=== PATIENT | female | born 1985 | race Caucasian/White ===

== ENCOUNTER 2017-07-11 16:58 | Emergency (ER) | payer MEDICAID | END 2017-07-11 18:02 | disposition home or self-care (01) | LOC: LB.ED 16:58 | DX: S61.235A Puncture wound without foreign body of left ring finger without damage to nail, initial encounter (principal); W45.8XXA Other foreign body or object entering through skin, initial encounter | CPT/HCPCS: 36415; 86706; 86803; 87389; 99282; 99283 ==

== ENCOUNTER 2017-09-16 22:50 | Emergency (ER) | payer MEDICAID, OTHER ==
[2017-09-16] MEDS ORDERED: Amoxicillin 500 MG Cap ONE (23:15)
--- NOTE | 2017-09-17 03:07 | ER ---
HPI: A 31-year-old lady here with her with complaints of sore throat for the last two days and some generalized achiness. The patient states that she has two children at home with strep throat, who were diagnosed last week, and she is getting similar symptoms. She states that she has not taken any [id number]-[id number] medications, but she thinks she does have some Advil at home. She denies any problems with high fever, shortness of breath, coughing, or GI symptoms. OBJECTIVE: GENERAL APPEARANCE: The patient is awake and alert. No obvious distress. VITAL SIGNS: Reviewed, they are normal. HEENT: Ears, TMs are dull, otherwise normal. Nares are patent. Oral mucous membranes moist. Pharynx is moderately erythematous. NECK: Supple with tender cervical lymphadenopathy noted. LUNGS: Clear. SKIN: Warm and dry. DIAGNOSIS: Pharyngitis with exposure to strep throat. TREATMENT PLAN: Amoxicillin for 10 days, [id number] medications should be used as needed. I advised patient to use it regularly for the next day or so, and then as needed as her symptoms should be improving. Strep precautions were discussed. Other family members should be monitored for similar symptoms and follow up is shamar CRS/MODL /[id number]
== END 2017-09-16 23:20 | disposition home or self-care (01) ==
LOC: LB.ED 22:50
DX: J02.0 Streptococcal pharyngitis (principal)
CPT/HCPCS: 99283; A9270

== ENCOUNTER 2018-04-12 22:02 | Emergency (ER) | payer SELFPAY ==
--- NOTE | 2018-04-12 22:35 | EDM.PDOC ---
ED HPI GENERAL MEDICAL PROBLEM - General Chief Complaint: General Stated Complaint: cough Time Seen by Provider: 04/12/18 22:15 Source of Information: Reports: Patient, RN History Limitations: Reports: No Limitations - History of Present Illness INITIAL COMMENTS - FREE TEXT/NARRATIVE: 32 yr female presents with cough, congestion, sore throat and achy. This has been going on for about 1 week. She is feeling some nauseated with this. States she did try a nebulizer at home and did get a worse cough with that. She does smoke and states a hx of bronchitis, but never had pneumonia that she is aware of. States her children are on antibiotic and are feeling better. She hasn't had any antibiotic for quite some time, but has had Bactrim in the past and no allergies to antibiotic in the past. Treatments ARC WELDER: Reports: Other Medication(s) Other Treatments ARC WELDER: Gregoria-seltzer, cough syrup, motrin, and tylenol right earache Pain Score (Numeric/FACES): 7 - Related Data Allergies Allergy/AdvReac Type Severity Reaction Status Date / Time morphine Allergy Anaphylactic Verified 04/12/18 22:21 Shock Home Meds: Home Meds NK [No Known Home Meds] 07/11/17 [History] Past Medical History - Past Health History Medical/Surgical History: Denies Medical/Surgical History DISTRICT CAPTAIN History: Reports: Other DISTRICT CAPTAIN History: Has 5 children - Infectious Disease History Infectious Disease History: Reports: MRSA, Other (See Below) Other Infectious Disease History: Stated, "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 Denies: Vomiting Musculoskeletal: Reports: Other (achy all over) Skin: Reports: Other (sore to left chest, states possible bug bite) Neurological: Reports: Headache Psychiatric: Reports: No Symptoms Hematologic/Lymphatic: Reports: No Symptoms Immunologic: Reports: No Symptoms ED EXAM, GENERAL - Physical Exam Exam: See Below Exam Limited By: No Limitations General Appearance: Alert, No Apparent Distress Ears: Normal Canal, Hearing Grossly Normal Ear Exam: Right Ear: TM Dull, TM Red, TM Bulging Nose: Normal Inspection Throat/Mouth: Normal Voice, No Airway Compromise Head: Atraumatic, Normocephalic Neck: Normal Inspection, Supple, Non-Tender Respiratory/Chest: Lungs Clear, Normal Breath Sounds Cardiovascular: Regular Rate, Rhythm GI/Abdominal: Soft, Non-Tender Extremities: Normal Range of Motion Neurological: Alert, Oriented, Normal Cognition Psychiatric: Normal Affect, Normal Mood Skin Exam: Warm, Normal Color Course - Vital Signs Last Recorded V/S: Last Vital Signs Temp 98.1 F 04/12/18 22:12 Pulse 77 04/12/18 22:12 Resp 18 04/12/18 22:12 BP 120/70 04/12/18 22:12 Pulse Ox 100 04/12/18 22:12 - Orders/Labs/Meds Orders: Active Orders 24 hr Category Date Time Status Chest 2V [CR] Stat Exams 04/12/18 22:22 Taken Labs: Laboratory Tests 04/12/18 Range/Units 22:30 WBC 13.3 H D (4.0-11.0) K/uL RBC 4.47 (3.80-5.80) M/uL Hgb 12.0 (11.5-16.5) g/dL Hct 37.0 (37.0-47.0) % MCV 83 (76-96) fL MCH 26.8 L (27.0-32.0) pg MCHC 32.4 (31.0-35.0) g/dL RDW 15.5 (11.0-16.0) % Plt Count 303 (150-500) K/uL MPV 10.3 H (6.0-10.0) fL Neut % (Auto) 60.2 (45.0-70.0) % Lymph % (Auto) 29.8 (20.0-40.0) % [place] % (Auto) 7.4 (3.0-10.0) % Eos % (Auto) 2.4 (1.0-5.0) % Baso % (Auto) 0.2 (0.0-0.5) % Neut # (Auto) 8.03 H (2.00-7.50) K/uL Lymph # (Auto) 3.96 (1.50-4.00) K/uL [place] # (Auto) 0.98 H (0.20-0.80) K/uL Eos # (Auto) 0.32 (0.04-0.40) K/uL Baso # (Auto) 0.02 (0.02-0.10) K/uL - Re-Assessments/Exams Free Text/Narrative Re-Assessment/Exam: 04/12/18 22:38 Will check CBC, Chest X-ray and influenza screen. Departure - Departure Time of Disposition: 23:20 Disposition: Home, Self-Care 01 Condition: Good Clinical Impression: Acute bronchitis - Discharge Information *PRESCRIPTION DRUG MONITORING PROGRAM REVIEWED*: Not Applicable *COPY OF PRESCRIPTION DRUG MONITORING REPORT IN PATIENT ANKUR: Not Applicable Forms: ED Department Discharge - My Orders Last 24 Hours: My Active Orders 04/12/18 22:22 Chest 2V [CR] Stat - Assessment/Plan Last 24 Hours: My Active Orders 04/12/18 22:22 Chest 2V [CR] Stat Plan: Acute bronchitis, probable start of pneumonia. Will treat with Azithromycin 2 tablet tonight then 1 tablet daily Recommend rest, fluids to thin secretion, Tylenol or Ibuprofen as needed. F/U in clinic in 1 week or sooner if symptoms worsen.
[2018-04-12] MEDS ORDERED: Azithromycin 250 MG Tab ONE (23:20)
--- NOTE | 2018-04-13 08:30 | CR ---
DATE OF SERVICE: 04/12/18 CLINICAL DATA: coughing PA AND LATERAL CHEST: The heart size is normal. The lungs are clear. No pneumothorax. No pleural effusions. No evidence of acute intrathoracic disease. [id number] MTDD
== END 2018-04-12 23:25 | disposition home or self-care (01) ==
LOC: LB.ED 22:02
DX: J20.9 Acute bronchitis, unspecified (principal); F17.200 Nicotine dependence, unspecified, uncomplicated; Z88.5 Allergy status to narcotic agent
CPT/HCPCS: 36415; 71046; 85025; 87804; 99283; A9270-GY

== ENCOUNTER 2018-09-01 10:36 | Day surgery (SDC) | payer MEDICAID ==
[~2018-09-01 10:36] MED LIST: Lactated Ringers 1,000 ML IV SCH
[2018-09-01] MEDS ORDERED: Midazolam 1 MG/ML 2 ML SDV ONE (13:45)
[2018-09-01] MEDS ORDERED: ceFAZolin 1 GM Vial ONE (13:45)
[2018-09-01] MEDS ORDERED: fentaNYL 100 MCG/2 ML SDV ONE (13:45)
[2018-09-01] MEDS ORDERED: Ketorolac 30 MG/ML SDV ONE (13:45)
[2018-09-01] MEDS ORDERED: Propofol 200 MG/20 ML SDV ONE (13:45)
--- NOTE | 2018-09-01 16:34 | OR ---
DATE OF OPERATION: 09/01/2018 REGISTRATION REP: Dia Veras RN. PREOPERATIVE DIAGNOSIS: Lipoma of back. POSTOPERATIVE DIAGNOSIS: Lipoma of back. PROCEDURE: Excision of lipoma of back. ANESTHESIA: Local with MAC. ESTIMATED BLOOD LOSS: Minimal. COMPLICATIONS: None. INDICATION FOR THE PROCEDURE: The patient is a 32-year-old female who has had a mass in her left upper back noticed for the past couple of months and is starting to bother her. She would like it removed. DESCRIPTION OF THE PROCEDURE: Informed consent was obtained with the patient. The patient was taken to the operating room and placed on table in prone position. Monitored anesthesia care was administered. She did receive preoperative antibiotics. Her back was prepped and draped in sterile fashion. The palpable mass was identified. The skin overlying this was infiltrated with local anesthetic. An opening incision of 5 cm was carried out with a #15 blade, dissecting down to the subcutaneous tissues with electrocautery. I did encounter the muscular fascia. This mass was underneath that. Fascia was opened sharply. Lipomatous mass was then bluntly dissected free as well as with the use of electrocautery. The mass was passed off the field. This was multilobulated, but approximate size was 4 cm x 3 cm x 1.5 cm. Some additional lipomatous pieces were also removed with the help of electrocautery. The wound was then irrigated and dried and hemostasis obtained with electrocautery. The fascial layer was then closed with 2-0 Vicryl suture. Deep dermal layer was closed with 3-0 Vicryl suture. Skin was closed with 4-0 Monocryl in a running subcuticular fashion. Mastisol, Steri-Strips, and sterile dressings were applied. At the end the case, all sponge count, needle count, and instrument counts correct. The patient tolerated the procedure well and was brought to recovery room in good condition. PARISA/COLUMBA /[id number]
== END 2018-09-01 16:49 | disposition home or self-care (01) ==
LOC: LB.SDS 10:36
PROVIDERS: ATTEND Surgery
DX: D17.1 Benign lipomatous neoplasm of skin and subcutaneous tissue of trunk (principal); F41.0 Panic disorder [episodic paroxysmal anxiety]; F41.1 Generalized anxiety disorder; F17.210 Nicotine dependence, cigarettes, uncomplicated; Z88.5 Allergy status to narcotic agent; Z98.890 Other specified postprocedural states
CPT/HCPCS: 13101; 21932; 88304; J0690; J1885; J2250; J2704; J3010; J7120

== ENCOUNTER 2019-04-01 11:58 | Emergency (ER) | payer MEDICAID ==
[2019-04-01] MEDS ORDERED: Ketorolac 10 MG Tab ONE (12:10)
[2019-04-01] MEDS: Ketorolac 60 MG/2 ML SDV IM ONE (12:32)
== END 2019-04-01 12:36 | disposition home or self-care (01) ==
LOC: LB.ED 11:58
DX: R07.0 Pain in throat (principal); Z90.89 Acquired absence of other organs
CPT/HCPCS: 96372; 99283; A9270; J1885

== ENCOUNTER 2019-05-31 00:24 | Emergency (ER) | payer MEDICAID ==
[2019-05-31] MEDS ORDERED: predniSONE 10 MG Tab ONE (00:40)
[2019-05-31] MEDS ORDERED: Doxycycline 100 MG Cap ONE (00:40)
[2019-05-31] MEDS ORDERED: Formoterol/Mometasone 100-5 MCG 8.8 GM Inhaler ONE (00:40)
--- NOTE | 2019-05-31 01:19 | ER ---
HISTORY OF PRESENT ILLNESS: This is a 33-year-old lady here with complaints of persistent harsh coughing that develops into chest discomfort and chest tightness. She states the cough is mostly dry. She also is developing sinus pressure and pain below both eyes that she is convinced is a sinus infection developing. These symptoms have been ongoing for 2 weeks. Early in the stage of her illness, she had flu-like symptoms, but these have resolved. The patient denies any problems with nausea, vomiting or diarrhea. OBJECTIVE: GENERAL APPEARANCE: The patient is awake and alert, in no obvious respiratory distress. She has an occasional harsh dry cough. VITAL SIGNS: Reviewed. She is afebrile and normotensive. O2 sats are 98% on room air. HEENT: Ears; TMs are slightly bulging with some yellow fluid behind them. Nares are patent. Oral mucous membranes moist. Posterior pharynx shows drainage and scattered cobblestoning. The patient has bimaxillary sinus tenderness with palpation. NECK: Supple. CHEST: Lung exam reveals lungs are clear, but deep breathing does induce harsh dry coughing. SKIN: Warm and dry. DIAGNOSES: 1. Sinusitis. 2. Post-influenza bronchitis. TREATMENT PLAN: The doxycycline will be started. I also will start the patient on Dulera 2 puffs b.i.d. for 10 days and then p.r.n. and a short course of oral prednisone. Activity should be as tolerated, and followup is p.r.n. CRS/MODL /[id number]
== END 2019-05-31 00:53 | disposition home or self-care (01) ==
LOC: MERGE 00:24 → LB.ED 00:24
DX: J32.9 Chronic sinusitis, unspecified (principal); J40 Bronchitis, not specified as acute or chronic; H93.8X3 Other specified disorders of ear, bilateral
CPT/HCPCS: 99283; A9270

== ENCOUNTER 2021-04-14 10:08 | Emergency (ER) | payer MEDICAID | END 2021-04-14 13:23 | disposition home or self-care (01) | LOC: LB.ED 10:08 | DX: S03.01XA Dislocation of jaw, right side, initial encounter (principal); Z88.5 Allergy status to narcotic agent; Z72.0 Tobacco use; Y04.8XXA Assault by other bodily force, initial encounter | CPT/HCPCS: 70486; 99283-25 ==

== ENCOUNTER 2022-01-23 12:40 | Emergency (ER) | payer MEDICAID ==
[2022-01-23] MEDS ORDERED: Ketorolac 30 MG/ML SDV IVPUSH ONE (12:47)
[2022-01-23] MEDS ORDERED: Sodium Chloride 0.9% 10 ML Syringe FLUSH PRN (12:47)
[2022-01-23] MEDS ORDERED: Ondansetron 4 MG/2 ML SDV IVPUSH ONE (12:56)
[2022-01-23] MEDS ORDERED: Ketorolac 30 MG/ML SDV ONE (13:10)
[2022-01-23] MEDS ORDERED: Ondansetron 4 MG/2 ML SDV ONE (13:10)
[2022-01-23] MEDS ORDERED: Sodium Chloride 0.9% 1,000 ML IV ONE (13:36)
[2022-01-23] MEDS ORDERED: Acetaminophen 500 MG Tab PO ONE (14:23)
[2022-01-23] MEDS ORDERED: Acetaminophen 500 MG Tab ONE (14:26)
[2022-01-23 15:21] VITALS: BP 122/88; PULSE 64
== END 2022-01-23 15:00 | disposition home or self-care (01) ==
LOC: SUPCPDRO 12:40 → LB.ED 12:40
DX: R10.30 Lower abdominal pain, unspecified (principal); Z88.6 Allergy status to analgesic agent
CPT/HCPCS: 36415; 74176; 80053; 80307; 81001; 83735; 85025; 96361; 96374; 96375; 99284; A9270; J1885; J2405; J7030

== ENCOUNTER 2023-11-27 06:30 | Emergency (ER) | payer MEDICAID, OTHER ==
[2023-11-27 07:16] LABS: BASOPHILS ABSOLUTE AUTO 0.02 K/uL (0.02-0.10); BASOPHILS PERCENT AUTO 0.1 % (0.0-0.5); EOSINOPHILS ABSOLUTE AUTO 0.13 K/uL (0.04-0.40); EOSINOPHILS PERCENT AUTO 0.9 % (1.0-5.0); HEMOGLOBIN 11.5 g/dL (11.5-16.5); LYMPHOCYTES ABSOLUTE AUTO 1.84 K/uL (1.50-4.00); LYMPHOCYTES PERCENT AUTO 12.3 % (20.0-40.0); MEAN CORPUSCULAR HEMOGLOBIN 27.1 pg (27.0-32.0); MEAN CORPUSCULAR HGB CONC 32.9 g/dL (31.0-35.0); MEAN CORPUSCULAR VOLUME 82 fL (76-96); MONOCYTES ABSOLUTE AUTO 1.01 K/uL (0.20-0.80); MONOCYTES PERCENT AUTO 6.8 % (3.0-10.0); NEUTROPHILS ABSOLUTE AUTO 11.91 K/uL (2.00-7.50); NEUTROPHILS PERCENT AUTO 79.9 % (45.0-70.0); PLATELET COUNT,PLT 326 K/uL (150-500); RED BLOOD CELL COUNT 4.25 M/uL (3.80-5.80); RED CELL DISTRIBUTION WIDTH 15.1 % (11.0-16.0); WHITE BLOOD CELL COUNT,WBC 14.9 K/uL (4.0-11.0)
[2023-11-27] MEDS: Sodium Chloride 0.9% 1,000 ML IV ONE (07:35)
[2023-11-27 07:36] LABS: A/G RATIO 0.9 (0.8-2.0); ALBUMIN 3.8 g/dL (3.4-5.0); ANION GAP 13.7 mmol/L (5.0-15.0); BILIRUBIN TOTAL 0.5 mg/dL (0.0-1.0); CALCIUM 8.9 mg/dL (8.5-10.1); CARBON DIOXIDE,CO2 26.9 mmol/L (21.0-32.0); CREATININE 0.8 mg/dL (0.55-1.02); EST CRCL DRUG DOSING (CG) 76.15 mL/min; POTASSIUM,K 3.6 mmol/L (3.5-5.1); PROTEIN TOTAL,TP 8.2 g/dL (6.4-8.2)
[2023-11-27] MEDS: Diphtheria,Pertussis(Acell),Tetanus Vaccine 0.5 ML Syringe IM ONE (08:12)
[2023-11-27] MEDS: Ketorolac 30 MG/ML SDV IVPUSH ONE (09:13)
[2023-11-27] MEDS: Ketorolac 30 MG/ML SDV ONE (09:16)
== END 2023-11-27 11:00 | disposition home or self-care (01) ==
LOC: LB.ED 06:30
DX: S49.92XA Unspecified injury of left shoulder and upper arm, initial encounter (principal); R46.89 Other symptoms and signs involving appearance and behavior; Z88.5 Allergy status to narcotic agent; Z23 Encounter for immunization; V89.2XXA Person injured in unspecified motor-vehicle accident, traffic, initial encounter; Y92.410 Unspecified street and highway as the place of occurrence of the external cause
CPT/HCPCS: 36415; 70450; 71045; 71250; 72125; 73030; 80053; 80307; 85025; 90471; 90715; 96361; 96374; 99285; J1885; J7030